=== PATIENT | male | born 1970 | race Caucasian/White ===

== ENCOUNTER 2016-05-13 19:55 | Emergency (ER) | payer OTHER ==
[2016-05-13] MEDS ORDERED: SODIUM CHLORIDE 0.9% 1,000 ML IV STA ×2 (20:57)
[2016-05-13] MEDS ORDERED: METOCLOPRAMIDE 5 MG/ML 2 ML VIAL IVP STA (20:57)
[2016-05-13] MEDS ORDERED: HYDROmorphone 1 MG/ML 1 ML SYRINGE IVP STA (20:57)
[2016-05-13 21:21] LABS: Basophils # (A) 0.1 k/uL (0-0.2); Basophils % (A) 2 %; CH 29.2; Eosinophils # (A) 0.2 k/uL (0-0.7); Eosinophils % (A) 3 %; HCT 45.6 % (39.0-53.0); HDW 2.76; HGB 15.2 gm/dL (13.0-17.5); Luc # (Auto) 0.17; Luc % (Auto) 2; Lymphocytes % (A) 26 %; MCH 28.7 pg (25.0-35.0); MCHC 33.4 g/dL (31.0-37.0); MCV 86.2 fL (80.0-100.0); Mean Platelet Volume 7.6; Monocytes # (A) 0.5 k/uL (0-1.0); Monocytes % (A) 6 %; Neutrophils # (A) 4.7 k/uL (1.3-7.7); Neutrophils % (A) 61 %; RBC 5.29 m/uL (4.30-5.90); WBC 7.7 k/uL (3.8-10.6); WBC (Perox) 7.81
[2016-05-13 21:31] LABS: ALT 27 U/L (21-72); AST 20 U/L (17-59); Alkaline Phosphatase 63 U/L (38-126); Amylase 72 U/L (30-110); Anion Gap 14 mmol/L; Blood Urea Nitrogen 13 mg/dL (9-20); Calcium 9.3 mg/dL (8.4-10.2); Carbon Dioxide 29 mmol/L (22-30); Chloride 101 mmol/L (98-107); Glucose 98 mg/dL (74-99); Non-African American GFR(MDRD) >60 (>60 ml/min/1.73 sqM); Sodium 144 mmol/L (137-145); Total Bilirubin 0.5 mg/dL (0.2-1.3); Total Protein 7.2 g/dL (6.3-8.2)
--- NOTE | 2016-05-13 21:51 | ED ---
General Adult HPI - General Source: patient, family, RN notes reviewed, old records reviewed Mode of arrival: wheelchair Limitations: no limitations <Eugene Oglesby - Last Filed: 05/13/16 21:43> <Jay Mena - Last Filed: 05/13/16 23:07> - General Chief complaint: Urogenital Stated complaint: Male Time Seen by Provider: 05/13/16 20:36 - History of Present Illness Initial comments: Chief complaint history of present illness this is a 45-year-old male here with his significant other. The patient's been having discomfort to the left flank left abdomen down into the left scrotal and testicular area. He recently had ultrasounds. The significant one is already detailed in the medical decision making area but does report bilateral hydroceles left being 8.6 cm with internal debris and a prominent right varicocele On examination the patient exquisitely tender with even mild palpation of the left abdomen left flank. Becomes diaphoretic. Patient states he thinks he may have diverticulitis in the past. (Eugene Oglesby) - Related Data Home Medications Medication Instructions Recorded Confirmed SUMAtriptan SUCCINATE [Imitrex] 25 mg PO BID PRN 04/13/15 05/13/16 Previous Rx's Medication Instructions Recorded Tamsulosin [Flomax] 0.4 mg PO DAILY #3 cap 12/04/15 Allergies Allergy/AdvReac Type Severity Reaction Status Date / Time No Known Allergies Allergy Verified 05/13/16 21:19 Review of Systems ROS Other: All systems not noted in ROS Statement are negative. <Eugene Oglesby - Last Filed: 05/13/16 21:43> ROS Other: All systems not noted in ROS Statement are negative. <Jay Mena - Last Filed: 05/13/16 23:07> ROS Statement: Those systems with pertinent positive or pertinent negative responses have been documented in the HPI. Review of systems. No headache or visual acuity changes. He has on-again off- again sweating because of the pain on the left side of the abdomen. Nausea no vomiting. Decreased appetite. Has appointment see his general surgeon shortly but the pain prevented him from waiting that long. All systems are reviewed. Past medical problems angina, pneumonia, kidney stones, diverticulosis, degenerative disc disease, urethral stricture. The patient surgical back surgery, urethral stricture surgery cholecystectomy, heart catheterization butstents. Hernia repair, left side. And cardiac catheterization as noted above. Family history kidney stones. Patient has no ALLERGIES. Nonsmoker nondrinker. (Eugene Oglesby) (Jay Mena) Past Medical History Past Medical History: Chest Pain / Angina, Musculoskeletal Disorder, Pneumonia, Renal Disease Additional Past Medical History / Comment(s): divericulosis, DDD, back pain and some neck pain on occasion, damage to uretha from catheter insertion during cystoscopy then developed urethral stricture- if pt notices urinary stream getting smaller he has a dilating device he uses but has not had to do this in yrs, kidney stones that he passed, carpal tunnel bilaterally, migraines, L fractured arm 2007. pancreatitis in september 2014 History of Any Multi-Drug Resistant Organisms: None Reported Past Surgical History: Back Surgery, Cholecystectomy, Heart Catheterization, Hernia Repair, Orthopedic Surgery Additional Past Surgical History / Comment(s): Cardiac cath normal, cystoscopy , R and L inguinal hernia repairs. C5-6 discectomy with fusion and titanium plate, L shoulder rotaor cuff repair acromioplasty and distal clavicle removed. Numerous colonoscopies, Past Anesthesia/Blood Transfusion Reactions: No Reported Reaction Additional Past Anesthesia/Blood Transfusion Reaction / Comment(s): Pt has never recieved blood. Past Psychological History: No Psychological Hx Reported Additional Psychological History / Comment(s): Pt lives at home with significant other. He is independent. No assistive devices. No home care. Smoking Status: Never smoker Past Alcohol Use History: None Reported Additional Past Alcohol Use History / Comment(s): smoked as teenager in high school none since. Past Drug Use History: None Reported - Past Family History Father Family Medical History: Diabetes Mellitus, Hypertension Mother Family Medical History: Cancer Additional Family Medical History / Comment(s): Mother had a total hysterectomy due to CA <Eugene Oglesby - Last Filed: 05/13/16 21:43> General Exam Limitations: no limitations <Eugene Oglesby - Last Filed: 05/13/16 21:43> General appearance: alert, in no apparent distress Head exam: Present: atraumatic, normocephalic, normal inspection Eye exam: Present: normal appearance, PERRL, EOMI. Absent: scleral icterus, conjunctival injection, periorbital swelling ENT exam: Present: normal exam, mucous membranes moist Neck exam: Present: normal inspection. Absent: tenderness, meningismus, lymphadenopathy Respiratory exam: Present: normal lung sounds bilaterally. Absent: respiratory distress, wheezes, rales, rhonchi, stridor Cardiovascular Exam: Present: regular rate, normal rhythm, normal heart sounds. Absent: systolic murmur, diastolic murmur, rubs, gallop, clicks GI/Abdominal exam: Present: soft, normal bowel sounds. Absent: distended, tenderness, guarding, rebound, rigid Extremities exam: Present: normal inspection, full ROM, normal capillary refill. Absent: tenderness, pedal edema, joint swelling, calf tenderness Back exam: Present: normal inspection Neurological exam: Present: alert, oriented X3, CN II-XII intact Psychiatric exam: Present: normal affect, normal mood Skin exam: Present: warm, dry, intact, normal color. Absent: rash <Jay Mena - Last Filed: 05/13/16 23:07> - General Exam Comments Initial Comments: General: The patient is awake and alert, because diaphoretic with palpation of the left side of the abdomen. Ongoing for several days. Vital signs temp 97.0 pulse 90 respiratory rate 18 pulse ox 99% room air Eye: Pupils are equal, , extra-ocular movements are intact; there is normal conjunctiva bilaterally. No signs of icterus. Ears, nose, mouth and throat: There are moist mucous membranes Neck: The neck is supple, there is no tenderness .. Cardiovascular: There is a regular rate and rhythm. No murmur, rub or gallop is appreciated. Respiratory: Lungs are clear to auscultation, respirations are non-labored, breath sounds are equal. No wheezes, stridor, rales, or rhonchi. Gastrointestinal: The patient has voluntary guarding and becomes diaphoretic with even mild palpation of the left side the abdomen. Deep palpation on the right side causes no pain minimal to no rebound or referred pain to the left side. Examination of the scrotum finds significant hydroceles bilaterally currently the left is greater than the right. Tenderness with manipulation even significant was a tenderness with even mild palpation over the left inguinal region. Back: There is no tenderness to palpation in the midline. There is no obvious deformity. No rashes noted. Musculoskeletal: Normal ROM, no tenderness, There is no pedal edema. There is no calf tenderness or swelling. Sensation intact. Pulses equal bilaterally 2+. Neurological: No neuro deficits Skin: Skin is warm and dry and no rashes or lesions are noted. (Eugene Oglesby) Course <Eugene Oglesby - Last Filed: 05/13/16 21:43> <Jay Mena - Last Filed: 05/13/16 23:07> Vital Signs 05/13/16 05/13/16 20:15 22:47 Temperature 98.0 F Pulse Rate 97 64 Respiratory 18 16 Rate Blood Pressure 114/64 O2 Sat by Pulse 99 99 Oximetry (Eugene Oglesby) (Jay Mena) - Reevaluation(s) Reevaluation #1: 05/13/16 23:06 Patient's symptoms at this time are improved, no specific abdominal pain ( Jay Mena) Reevaluation #2: 05/13/16 23:[address] findings, hernia, will follow up with surgery as appropriate (Jay Mena) Medical Decision Making - Lab Data Result diagrams: 05/13/16 21:10 05/13/16 21:10 <Eugene Oglesby - Last Filed: 05/13/16 21:43> - Lab Data Result diagrams: 05/13/16 21:10 05/13/16 21:10 - Radiology Data Radiology results: report reviewed (X-ray abdomen, CT and pelvis does show fat- containing hernia, no acute disease), image reviewed <Jay Mena - Last Filed: 05/13/16 23:07> - Medical Decision Making Patient had several ultrasounds and tests prior to coming in today. All related to the discomfort in the left side and left testicle area. The patient' s ultrasound performed 12 days ago showed good bilateral color flow and waveforms are seen is no evidence of testicular torsion. There are presence of hydroceles on the right side a 6 cm with internal debris on the left 8.6 cm with internal debris. There is also presence of varicoceles on the right with prominent vessels. The right testicle increase in vascularity with Valsalva. As read by Dr. Giordano the patient also had an ultrasound of the abdomen complete in the pelvis limited. The radiologist's impression is the pancreas poorly visualized. The liver visualized portions are within normal limits limited by rib shadowing. The gallbladder is surgically absent. Common bile duct visualized portions normal limits, limited distally overlying Gas. The spleen visualized portions are normal limits, limited by rib shadowing overlying gas. The right kidney 1.6 cm hypoechoic area superior pole , 0.5 cm echogenic shadowing focus superior pole. There is 1.6 cm simple appearing cyst in the upper pole right kidney. There is very questionable 4.6 mm calcification right hip. Left kidney within normal limits. Aorta visualized portions normal limits proximal Midline gas. Upper IVC, within normal limits. The bladder wall appears slightly thickened 0.4 cm. Bladder is not distended however final impression is 1 simple appearing right upper pole renal cyst. No acute questionable 5 mm calcification in the right. As read by Dr. Giordano ([facility]) - Lab Data Lab Results 05/13/16 05/13/16 05/13/16 Range/Units 21:10 21:10 21:10 WBC 7.7 (3.8-10.6) k/uL RBC 5.29 (4.30-5.90) m/uL Hgb 15.2 (13.0-17.5) gm/dL Hct 45.6 (39.0-53.0) % MCV 86.2 (80.0-100.0) fL MCH 28.7 (25.0-35.0) pg MCHC 33.4 (31.0-37.0) g/dL RDW 13.0 (11.5-15.5) % Plt Count 252 (150-450) k/uL Neutrophils % 61 % Lymphocytes % 26 % Monocytes % 6 % Eosinophils % 3 % Basophils % 2 % Neutrophils # 4.7 (1.3-7.7) k/uL Lymphocytes # 2.0 (1.0-4.8) k/uL Monocytes # 0.5 (0-1.0) k/uL Eosinophils # 0.2 (0-0.7) k/uL Basophils # 0.1 (0-0.2) k/uL Sodium 144 (137-145) mmol/L Potassium 4.0 (3.5-5.1) mmol/L Chloride 101 (98-107) mmol/L Carbon Dioxide 29 (22-30) mmol/L Anion Gap 14 mmol/L BUN 13 (9-20) mg/dL Creatinine 0.86 (0.66-1.25) mg/dL Est GFR (MDRD) Af Amer >60 (>60 ml/min/1.73 sqM) Est GFR (MDRD) Non-Af >60 (>60 ml/min/1.73 sqM) Glucose 98 (74-99) mg/dL Plasma Lactic Acid Raul 2.0 (0.7-2.0) mmol/L Calcium 9.3 (8.4-10.2) mg/dL Total Bilirubin 0.5 (0.2-1.3) mg/dL AST 20 (17-59) U/L ALT 27 (21-72) U/L Alkaline Phosphatase 63 (38-126) U/L Total Protein 7.2 (6.3-8.2) g/dL Albumin 4.1 (3.5-5.0) g/dL Amylase 72 (30-110) U/L Lipase 192 (23-300) U/L Urine Color Urine Appearance (Clear) Urine pH (5.0-8.0) Ur Specific [place] (1.001-1.035) Urine Protein (Negative) Urine Glucose (UA) (Negative) Urine Ketones (Negative) Urine Blood (Negative) Urine Nitrate (Negative) Urine Bilirubin (Negative) Urine Urobilinogen (<2.0) mg/dL Ur Leukocyte Esterase (Negative) Urine RBC (0-5) /hpf Urine WBC (0-5) /hpf Ur Squamous Epith Cells (0-4) /hpf Calcium Oxalate Crystal (None) /hpf Urine Bacteria (None) /hpf Urine Mucus (None) /hpf 05/13/16 Range/Units 21:20 WBC (3.8-10.6) k/uL RBC (4.30-5.90) m/uL Hgb (13.0-17.5) gm/dL Hct (39.0-53.0) % MCV (80.0-100.0) fL MCH (25.0-35.0) pg MCHC (31.0-37.0) g/dL RDW (11.5-15.5) % Plt Count (150-450) k/uL Neutrophils % % Lymphocytes % % Monocytes % % Eosinophils % % Basophils % % Neutrophils # (1.3-7.7) k/uL Lymphocytes # (1.0-4.8) k/uL Monocytes # (0-1.0) k/uL Eosinophils # (0-0.7) k/uL Basophils # (0-0.2) k/uL Sodium (137-145) mmol/L Potassium (3.5-5.1) mmol/L Chloride (98-107) mmol/L Carbon Dioxide (22-30) mmol/L Anion Gap mmol/L BUN (9-20) mg/dL Creatinine (0.66-1.25) mg/dL Est GFR (MDRD) Af Amer (>60 ml/min/1.73 sqM) Est GFR (MDRD) Non-Af (>60 ml/min/1.73 sqM) Glucose (74-99) mg/dL Plasma Lactic Acid Raul (0.7-2.0) mmol/L Calcium (8.4-10.2) mg/dL Total Bilirubin (0.2-1.3) mg/dL AST (17-59) U/L ALT (21-72) U/L Alkaline Phosphatase (38-126) U/L Total Protein (6.3-8.2) g/dL Albumin (3.5-5.0) g/dL Amylase (30-110) U/L Lipase (23-300) U/L Urine Color Yellow Urine Appearance Clear (Clear) Urine pH 6.0 (5.0-8.0) Ur Specific [place] 1.017 (1.001-1.035) Urine Protein Trace H (Negative) Urine Glucose (UA) Negative (Negative) Urine Ketones Negative (Negative) Urine Blood Negative (Negative) Urine Nitrate Negative (Negative) Urine Bilirubin Negative (Negative) Urine Urobilinogen <2.0 (<2.0) mg/dL Ur Leukocyte Esterase Trace H (Negative) Urine RBC 2 (0-5) /hpf Urine WBC 8 H (0-5) /hpf Ur Squamous Epith Cells 2 (0-4) /hpf Calcium Oxalate Crystal Rare H (None) /hpf Urine Bacteria Rare H (None) /hpf Urine Mucus Rare H (None) /hpf (Eugene Oglesby) (Jay Mena) Disposition <Eugene Oglesby - Last Filed: 05/13/16 21:43> <Jay Mena - Last Filed: 05/13/16 23:07> Clinical Impression: Abdominal pain, Umbilical hernia Disposition: HOME SELF-CARE Condition: Good Instructions: Abdominal Pain (ED), Umbilical Hernia (ED) Referrals: Ludwin Whiteside III, MD [Primary Care Provider] - 1-2 days Gely Arias MD [STAFF PHYSICIAN] - 1-2 days
[2016-05-13 21:52] LABS: Appearance,Urine Clear (Clear); Bacteria,Urine Rare /hpf; Bilirubin,Urine Negative (Negative); Calcium Oxalate Crystals,Urine Rare /hpf; Glucose,Urine (UA) Negative (Negative); Ketones,Urine Negative (Negative); Leukocyte Esterase,Urine Trace (Negative); Mucus,Urine Rare /hpf; Nitrite,Urine Negative (Negative); Particle Count 1413; Protein,Urine Trace (Negative); RBC,Urine 2 /hpf (0-5); Specific Gravity,Urine 1.017 (1.001-1.035); Squamous Epithelial Cell,Urine 2 /hpf (0-4); UA Billing (MACRO vs. MICRO) MICRO; Urobilinogen,Urine <2.0 mg/dL (<2.0); WBC,Urine 8 /hpf (0-5)
[2016-05-13] MEDS ORDERED: RX INFO: IV CONTRAST WAS GIVEN 1 EACH MISC MISCELLANE PRN (21:52)
[2016-05-13] MEDS ORDERED: IOHEXOL 350 MG/ML 25 ML BOTTLE (ORAL USE) PO PRN (21:52)
--- NOTE | 2016-05-13 22:05 | XR ---
EXAMINATION TYPE: XR abdomen 2V DATE OF EXAM: 05/13/2016 9:31 PM CLINICAL HISTORY: Generalized abdominal and left testicular pain, color changed to scrotum per patien t. TECHNIQUE: 3 views of abdomen were obtained in supine and upright positions. COMPARISON: None. FINDINGS: Scattered gas is seen in non-distended small bowel loops. Gas and fecal material is seen in non-distended colon. There is no visceromegaly, pneumoperitoneum, appreciated. The lung bases are clear and the osseous structures are intact. Small densities are noted superimposing the right kidney largest one measuring 3 mm and is suspicious for right kidney stones. Surgical clips are noted in the right upper abdomen with cholecystectomy ch anges. IMPRESSION: 1. Overall nonobstructive bowel gas pattern. 2. Right kidney stones are suggested. 3. Cholecystectomy changes.
[2016-05-13 22:48] VITALS: RESP 16
--- NOTE | 2016-05-13 23:05 | CT ---
EXAMINATION TYPE: CT abdomen pelvis w con DATE OF EXAM: 05/13/2016 10:36 PM COMPARISON: 12/04/2015 HISTORY: Generalized abdominal pain and left testicular pain with discoloration to the scrotum, histo ry of diverticulitis, and cholecystectomy CT DLP: 2496.60 mGycm Automated exposure control for dose reduction was used. TECHNIQUE: Helical acquisition of images was performed from the lung bases through the pelvis. CONTRAST: Performed without Oral Contrast and with IV Contrast, patient injected with 100 mL of Omnipaque 300. FINDINGS: LUNG BASES: Mild atelectasis/scarring is suggested in the right lung base anteriorly. LIVER/GB: No significant abnormality is appreciated in the liver. Cholecystectomy changes are noted. PANCREAS: No significant abnormality is seen. SPLEEN: No significant abnormality is seen. ADRENALS: No significant abnormality is seen. KIDNEYS: Benign-appearing bilateral renal cysts are noted. Mild perinephric fat stranding is noted bilaterally more on the left side probably of chronic nature. There is suggestion of tiny nonobstructing opaque stones of 2 to 3 mm in both kidneys. REPRODUCTIVE ORGANS: Mild enlargement of prostate gland is noted. URINARY BLADDER: No significant abnormality is seen. PELVIC ADENOPATHY: None visualized. OSSEOUS STRUCTURES: Multilevel degenerative changes are present in the thoracolumbar spine with mult iple old wedge compression deformities of thoracic vertebrae. BOWEL: Visualized appendix appears grossly unremarkable without significant surrounding inflammation . Stomach appears grossly unremarkable. Mild fluid distention of small bowel loops are noted without si gnificant obstruction. Mild colonic diverticulosis is noted. There is mucosal thickening in the sigmoid colon and descending colon and possibility of mild colitis changes cannot be excluded. ABDOMINAL WALL: There is evidence of moderate fact and probable omentum containing inguinal hernias b ilaterally larger on the left side. No bowel herniation is noted. Visualized left testicle appears grossly unremarkable in this limited evaluation. Only a small portio n of left testicle is included in the axial images. The right testicle is not included in the axial i mages. IMPRESSION: 1. MODERATE FACT AND PROBABLE OMENTUM CONTAINING INGUINAL HERNIAS BILATERALLY LARGER ON THE LEFT SIDE . 2. VISUALIZED LEFT TESTICLE APPEARS GROSSLY UNREMARKABLE IN THIS LIMITED EVALUATION. 3. BILATERAL RENAL CYSTS AND NONOBSTRUCTING OPAQUE STONES. 4. CHOLECYSTECTOMY. 5. VISUALIZED APPENDIX APPEARS UNREMARKABLE.
[2016-05-14] VITALS: BP 107/78; PULSE 67; TEMP 97.9
== END 2016-05-14 | disposition home or self-care (01) ==
LOC: EC 19:55
DX: R10.9 Unspecified abdominal pain (principal); N43.3 Hydrocele, unspecified; K42.9 Umbilical hernia without obstruction or gangrene; N28.1 Cyst of kidney, acquired; Z98.62 Peripheral vascular angioplasty status; Z79.899 Other long term (current) drug therapy
CPT/HCPCS: 99284; 36415; 80053; 82150; 83605; 83690; 85025; 81001; 87086; 74020; 74177; J2765; J1170; Q9967

== ENCOUNTER 2016-08-12 17:41 | Emergency (ER) | payer OTHER ==
--- NOTE | 2016-08-12 17:59 | ED ---
General Adult HPI - General Chief complaint: Extremity Injury, Upper Stated complaint: FALL Time Seen by Provider: 08/12/16 17:45 Source: patient, EMS, RN notes reviewed, old records reviewed Mode of arrival: EMS Limitations: no limitations - History of Present Illness Initial comments: This is a 45-year-old male to the ER for evaluation. This patient closely for evaluation of shoulder pain. Patient has been falling and right shoulder, severe right shoulder pain. Patient's fall was mechanical in nature has no other injury aside from the right shoulder - Related Data Home Medications Medication Instructions Recorded Confirmed SUMAtriptan SUCCINATE [Imitrex] 25 mg PO BID PRN 04/13/15 05/13/16 Previous Rx's Medication Instructions Recorded Tamsulosin [Flomax] 0.4 mg PO DAILY #3 cap 12/04/15 Allergies Allergy/AdvReac Type Severity Reaction Status Date / Time No Known Allergies Allergy Verified 08/12/16 17:48 Review of Systems ROS Statement: Those systems with pertinent positive or pertinent negative responses have been documented in the HPI. ROS Other: All systems not noted in ROS Statement are negative. Past Medical History Past Medical History: Chest Pain / Angina, Musculoskeletal Disorder, Pneumonia, Renal Disease Additional Past Medical History / Comment(s): divericulosis, DDD, back pain and some neck pain on occasion, damage to uretha from catheter insertion during cystoscopy then developed urethral stricture- if pt notices urinary stream getting smaller he has a dilating device he uses but has not had to do this in yrs, kidney stones that he passed, carpal tunnel bilaterally, migraines, L fractured arm 2007. pancreatitis in september 2014 History of Any Multi-Drug Resistant Organisms: None Reported Past Surgical History: Back Surgery, Cholecystectomy, Heart Catheterization, Hernia Repair, Orthopedic Surgery Additional Past Surgical History / Comment(s): Cardiac cath normal, cystoscopy , R and L inguinal hernia repairs. C5-6 discectomy with fusion and titanium plate, L shoulder rotaor cuff repair acromioplasty and distal clavicle removed. Numerous colonoscopies, Past Anesthesia/Blood Transfusion Reactions: No Reported Reaction Additional Past Anesthesia/Blood Transfusion Reaction / Comment(s): Pt has never recieved blood. Past Psychological History: No Psychological Hx Reported Additional Psychological History / Comment(s): Pt lives at home with significant other. He is independent. No assistive devices. No home care. Smoking Status: Never smoker Past Alcohol Use History: None Reported Additional Past Alcohol Use History / Comment(s): smoked as teenager in high school none since. Past Drug Use History: None Reported - Past Family History Father Family Medical History: Diabetes Mellitus, Hypertension Mother Family Medical History: Cancer Additional Family Medical History / Comment(s): Mother had a total hysterectomy due to CA General Exam Limitations: no limitations General appearance: alert, in no apparent distress Head exam: Present: atraumatic, normocephalic, normal inspection Eye exam: Present: normal appearance, PERRL, EOMI. Absent: scleral icterus, conjunctival injection, periorbital swelling ENT exam: Present: normal exam, mucous membranes moist Neck exam: Present: normal inspection. Absent: tenderness, meningismus, lymphadenopathy Respiratory exam: Present: normal lung sounds bilaterally. Absent: respiratory distress, wheezes, rales, rhonchi, stridor Cardiovascular Exam: Present: regular rate, normal rhythm, normal heart sounds. Absent: systolic murmur, diastolic murmur, rubs, gallop, clicks GI/Abdominal exam: Present: soft, normal bowel sounds. Absent: distended, tenderness, guarding, rebound, rigid Extremities exam: Present: normal inspection, full ROM, normal capillary refill. Absent: tenderness, pedal edema, joint swelling, calf tenderness Back exam: Present: normal inspection Neurological exam: Present: alert, oriented X3, CN II-XII intact Psychiatric exam: Present: normal affect, normal mood Skin exam: Present: warm, dry, intact, normal color. Absent: rash Course Vital Signs 08/12/16 08/12/16 08/12/16 17:48 18:38 18:43 Temperature 97.6 F Pulse Rate 60 74 72 Respiratory 18 16 16 Rate Blood Pressure 105/62 104/59 104/59 O2 Sat by Pulse 100 98 100 Oximetry 08/12/16 18:45 Temperature Pulse Rate 72 Respiratory 15 Rate Blood Pressure 158/72 O2 Sat by Pulse 100 Oximetry - Reevaluation(s) Reevaluation #1: 08/12/16 18:55 After procedural sedation patient has not returned to being completely awake and alert Procedures - Orthopedic Joint Reduction Joint #1 Consent Obtained: verbal consent Time Out Performed: Yes Side: right Joint Reduction Location: shoulder Analgesia: procedural sedation Shoulder Technique Used (if applicable): traction/counter-traction, external rotation Post-Reduction Neuro Exam: intact Post-Reduction Vascular Exam: intact Post Reduction X-Ray Obtained: Yes Post Reduction X-Ray Results: reduced Splint Applied: Yes Patient Tolerated Procedure: well - Procedural Sedation Indications: fracture/dislocation reduction ASA Class: II Mallampati Airway Score: 2 Preparation: cardiac monitor technician applied, pulse oximeter, capnometry used, supplemental O2 applied, reversal agents at bedside, suction/airway equipment at bedside Midazolam: IV Midazolam Dose: 2 Ketamine: IV Ketamine Dose: 100 Complications: none Interventions: oxygen applied Patient Tolerated Procedure: well Medical Decision Making - Medical Decision Making 45 year status post fall, positive right shoulder dislocation, patient was placed in the conscious sedation here in the emergency room, her shoulder was relocated and patient was discharged home - Radiology Data Radiology results: report reviewed (X-ray right shoulder shows anterior dislocation, repeat x-ray shows relocation of reduced right shoulder joint), image reviewed Disposition Clinical Impression: Dislocation of shoulder region, Dislocation of right shoulder joint, Fall Disposition: HOME SELF-CARE Condition: Good Referrals: Ludwin Whiteside III, MD [Primary Care Provider] - 1-2 days
[2016-08-12] MEDS ORDERED: MIDAZOLAM 2 MG/2 ML VIAL IV ONE (18:12)
[2016-08-12] MEDS ORDERED: KETAMINE 10 MG/ML 20 ML VIAL IV ONE (18:12)
--- NOTE | 2016-08-12 18:27 | XR ---
EXAMINATION TYPE: XR shoulder limited RT DATE OF EXAM: 08/12/2016 6:19 PM COMPARISON: NONE HISTORY: Fell today TECHNIQUE: 2 views FINDINGS: There is anterior dislocation of the humeral head. Exam is limited by the obesity. I see no fracture line. IMPRESSION: Anterior shoulder joint dislocation.
--- NOTE | 2016-08-12 19:11 | XR ---
EXAMINATION TYPE: XR shoulder limited RT DATE OF EXAM: 08/12/2016 6:55 PM COMPARISON: Today HISTORY: Post reduction TECHNIQUE: Single view FINDINGS: There appears to be anatomic reduction of the glenohumeral joint. I see no fracture line. IMPRESSION: Anatomic reduction.
[2016-08-12] MEDS ORDERED: KETOROLAC 30 MG/ML 1 ML VIAL IVP STA (19:47)
[2016-08-12 20:52] VITALS: BP 115/66; PULSE 95; RESP 20; TEMP 97.9
== END 2016-08-12 20:53 | disposition home or self-care (01) ==
LOC: EC 17:41
DX: S43.004A Unspecified dislocation of right shoulder joint, initial encounter (principal); W19.XXXA Unspecified fall, initial encounter
CPT/HCPCS: 23650 ×2; 99284 ×2; 96374 ×2; 99152 ×2; 73020; J2250; J1885

== ENCOUNTER → 2016-10-02 | Outpatient (CLI) | payer OTHER ==
--- NOTE | 2016-10-02 12:31 | MR ---
EXAMINATION TYPE: MR shoulder RT wo con DATE OF EXAM: 10/02/2016 12:21 PM COMPARISON: NONE HISTORY: Pain in Right shoulder, Dislocation TECHNIQUE: Multiplanar, multisequence imaging of the right shoulder is performed without contrast. Th e patient was claustrophobic and could not complete the exam. No sagittal images are provided. FINDINGS: Limited scanning demonstrates increased fluid surrounding the bicipital tendon which appear s dislocated from the bicipital groove. There is a small joint effusion. A complete tear of the rotator cuff tendon with retraction to the AC joint is suspected. Hypertrophic change of the AC joint is noted. Due to motion and lack of complete imaging evaluation the labrum is suboptimal. Evaluation the inferi or glenohumeral ligament is nondiagnostic. Could not exclude injury. IMPRESSION: Severely limited exam due motion artifact and lack of sagittal images. The exam is incomplete seconda ry to claustrophobia. Complete tear of the rotator cuff is suspected with elevation of the humeral h ead and joint effusion and tendinous retraction. Bicipital tendon appears to be dislocated from the bicipital groove. Incompletely imaged cannot exclu de biceps bicipital tendon tear based on the limited images provided. AC joint arthropathy.
== END | disposition home or self-care (01) ==
LOC: RADMRIMAIN 11:15
PROVIDERS: ATTEND Orthopaedic Surgery Sports Medicine
DX: M25.411 Effusion, right shoulder (principal)

== ENCOUNTER 2016-10-12 06:51 | Emergency (ER) | payer OTHER ==
[2016-10-12] MEDS ORDERED: ONDANSETRON 4 MG/2 ML VIAL IVP STA (08:06)
[2016-10-12] MEDS ORDERED: MORPHINE SULFATE 4 MG/ML SYRINGE IV STA (08:06)
[2016-10-12] MEDS ORDERED: SODIUM CHLORIDE 0.9% 1,000 ML IV STA (08:06)
[2016-10-12] MEDS ORDERED: SODIUM CHLORIDE 0.9% 500 ML IV STA (08:06)
--- NOTE | 2016-10-12 08:10 | ED ---
General Adult HPI - General Chief complaint: Nausea/Vomiting/Diarrhea Stated complaint: NVD *6days Time Seen by Provider: 10/12/16 07:21 Source: patient, RN notes reviewed, old records reviewed Mode of arrival: ambulatory Limitations: no limitations - History of Present Illness Initial comments: A 38-year-old male the ER for evaluation of multiple complaints, complaints vomiting and cold symptoms, cough congestion diarrhea abdominal pain. Nausea and vomiting. Medical history is significant for multiple surgeries and, no history of heart disease. Nonsmoker. Patient states family members have also been getting sick that he has got at the worse. No change in medications. No travel history. No recent hospitalizations or sick contacts. Patient's is states he is having decreased appetite, decreased activity level, beginning to feel more weak and fatigued. - Related Data Previous Rx's Medication Instructions Recorded Albuterol Inhaler [Ventolin Hfa 1 - 2 puff INHALATION Q6HR #1 10/12/16 Inhaler] inhaler Levofloxacin [Levaquin] 750 mg PO DAILY #7 tab 10/12/16 Naproxen [Naprosyn] 500 mg PO Q12HR #30 tab 10/12/16 Ondansetron [Zofran] 4 mg PO Q8HR PRN #30 tab 10/12/16 Allergies Allergy/AdvReac Type Severity Reaction Status Date / Time No Known Allergies Allergy Verified 10/12/16 06:54 Review of Systems ROS Statement: Those systems with pertinent positive or pertinent negative responses have been documented in the HPI. ROS Other: All systems not noted in ROS Statement are negative. Past Medical History Past Medical History: Chest Pain / Angina, Musculoskeletal Disorder, Pneumonia, Renal Disease Additional Past Medical History / Comment(s): divericulosis, DDD, back pain and some neck pain on occasion, damage to uretha from catheter insertion during cystoscopy then developed urethral stricture- if pt notices urinary stream getting smaller he has a dilating device he uses but has not had to do this in yrs, kidney stones that he passed, carpal tunnel bilaterally, migraines, L fractured arm 2007. pancreatitis in september 2014 History of Any Multi-Drug Resistant Organisms: None Reported Past Surgical History: Back Surgery, Cholecystectomy, Heart Catheterization, Hernia Repair, Orthopedic Surgery Additional Past Surgical History / Comment(s): Cardiac cath normal, cystoscopy , R and L inguinal hernia repairs. C5-6 discectomy with fusion and titanium plate, L shoulder rotaor cuff repair acromioplasty and distal clavicle removed. Numerous colonoscopies, Past Anesthesia/Blood Transfusion Reactions: No Reported Reaction Additional Past Anesthesia/Blood Transfusion Reaction / Comment(s): Pt has never recieved blood. Past Psychological History: No Psychological Hx Reported Additional Psychological History / Comment(s): Pt lives at home with significant other. He is independent. No assistive devices. No home care. Smoking Status: Never smoker Past Alcohol Use History: None Reported Additional Past Alcohol Use History / Comment(s): smoked as teenager in high school none since. Past Drug Use History: None Reported - Past Family History Father Family Medical History: Diabetes Mellitus, Hypertension Mother Family Medical History: Cancer Additional Family Medical History / Comment(s): Mother had a total hysterectomy due to CA General Exam Limitations: no limitations General appearance: alert, in no apparent distress Head exam: Present: atraumatic, normocephalic, normal inspection Eye exam: Present: normal appearance, PERRL, EOMI. Absent: scleral icterus, conjunctival injection, periorbital swelling ENT exam: Present: normal exam, mucous membranes moist Neck exam: Present: normal inspection. Absent: tenderness, meningismus, lymphadenopathy Respiratory exam: Present: normal lung sounds bilaterally. Absent: respiratory distress, wheezes, rales, rhonchi, stridor Cardiovascular Exam: Present: regular rate, normal rhythm, normal heart sounds. Absent: systolic murmur, diastolic murmur, rubs, gallop, clicks GI/Abdominal exam: Present: soft, normal bowel sounds. Absent: distended, tenderness, guarding, rebound, rigid Extremities exam: Present: normal inspection, full ROM, normal capillary refill. Absent: tenderness, pedal edema, joint swelling, calf tenderness Back exam: Present: normal inspection Neurological exam: Present: alert, oriented X3, CN II-XII intact Psychiatric exam: Present: normal affect, normal mood Skin exam: Present: warm, dry, intact, normal color. Absent: rash Course Vital Signs 10/12/16 10/12/16 06:55 10:13 Temperature 98.3 F Pulse Rate 78 70 Respiratory 18 16 Rate Blood Pressure 116/65 105/61 O2 Sat by Pulse 98 94 L Oximetry - Reevaluation(s) Reevaluation #1: 10/12/16 10:15 Patient is in no respiratory distress, symptoms are much improved and states he would like to be discharged discharged home Medical Decision Making - Medical Decision Making 46 male here for evaluation of chest pain, positive pneumonia, patient is in no respiratory distress and can be discharged home - Lab Data Result diagrams: 10/12/16 07:35 10/12/16 07:35 Lab Results 10/12/16 10/12/16 Range/Units 07:35 07:35 WBC 7.0 (3.8-10.6) k/uL RBC 5.11 (4.30-5.90) m/uL Hgb 14.5 (13.0-17.5) gm/dL Hct 41.7 (39.0-53.0) % MCV 81.6 (80.0-100.0) fL MCH 28.5 (25.0-35.0) pg MCHC 34.9 (31.0-37.0) g/dL RDW 13.8 (11.5-15.5) % Plt Count 168 (150-450) k/uL Neutrophils % 81 % Lymphocytes % 11 % Monocytes % 5 % Eosinophils % 0 % Basophils % 1 % Neutrophils # 5.7 (1.3-7.7) k/uL Lymphocytes # 0.8 L (1.0-4.8) k/uL Monocytes # 0.3 (0-1.0) k/uL Eosinophils # 0.0 (0-0.7) k/uL Basophils # 0.1 (0-0.2) k/uL Sodium 132 L (137-145) mmol/L Potassium 3.3 L (3.5-5.1) mmol/L Chloride 95 L (98-107) mmol/L Carbon Dioxide 25 (22-30) mmol/L Anion Gap 12 mmol/L BUN 40 H (9-20) mg/dL Creatinine 1.42 H (0.66-1.25) mg/dL Est GFR (MDRD) Af Amer >60 (>60 ml/min/1.73 sqM) Est GFR (MDRD) Non-Af 53 (>60 ml/min/1.73 sqM) Glucose 96 (74-99) mg/dL Calcium 8.4 (8.4-10.2) mg/dL Phosphorus 4.0 (2.5-4.5) mg/dL Magnesium 2.7 H (1.6-2.3) mg/dL Total Bilirubin 0.9 (0.2-1.3) mg/dL AST 221 H (17-59) U/L ALT 63 (21-72) U/L Alkaline Phosphatase 50 (38-126) U/L Total Protein 6.7 (6.3-8.2) g/dL Albumin 3.6 (3.5-5.0) g/dL Lipase 357 H (23-300) U/L - Radiology Data Radiology results: report reviewed (Chest x-ray positive for pneumonia), image reviewed Disposition Clinical Impression: Community acquired bacterial pneumonia Disposition: HOME SELF-CARE Condition: Good Instructions: Acute Nausea and Vomiting (ED), Community Acquired Pneumonia (ED) Prescriptions: Albuterol Inhaler [Ventolin Hfa Inhaler] 1 - 2 puff INHALATION Q6HR #1 inhaler Levofloxacin [Levaquin] 750 mg PO DAILY #7 tab Naproxen [Naprosyn] 500 mg PO Q12HR #30 tab Ondansetron [Zofran] 4 mg PO Q8HR PRN #30 tab PRN Reason: Nausea Referrals: Ludwin Whiteside III, MD [Primary Care Provider] - 1-2 days
--- NOTE | 2016-10-12 08:57 | XR ---
EXAMINATION TYPE: XR abdomen acute w cxr DATE OF EXAM: 10/12/2016 COMPARISON: NONE HISTORY: Pain TECHNIQUE: Single view of the chest and 2 views of the abdomen are submitted. FINDINGS: Single view of the chest demonstrates right lower lobe airspace consolidation. There is no evidence for pneumoperitoneum. The bowel gas pattern is unremarkable as there is air throughout nondilated small and large bowel. No sizeable air fluid levels.No mass effects are seen. No unusual calcifications. IMPRESSION: 1. Right lower lobe infiltrate. Correlate for pneumonia. 2. Unremarkable abdomen. Cholecystectomy clips.
[2016-10-12 09:29] LABS: Basophils # (A) 0.1 k/uL (0-0.2); Basophils % (A) 1 %; CHCM 35.7; Eosinophils % (A) 0 %; HCT 41.7 % (39.0-53.0); HDW 2.98; HGB 14.5 gm/dL (13.0-17.5); Luc % (Auto) 3; Lymphocytes # (A) 0.8 k/uL (1.0-4.8); Lymphocytes % (A) 11 %; MCH 28.5 pg (25.0-35.0); MCHC 34.9 g/dL (31.0-37.0); MCV 81.6 fL (80.0-100.0); Mean Platelet Volume 7.6; Monocytes # (A) 0.3 k/uL (0-1.0); Monocytes % (A) 5 %; Neutrophils # (A) 5.7 k/uL (1.3-7.7); Neutrophils % (A) 81 %; RBC 5.11 m/uL (4.30-5.90); RDW 13.8 % (11.5-15.5); WBC (Perox) 6.68
[2016-10-12] MEDS ORDERED: IPRATROPIUM-ALBUTEROL 3 ML NEB INHALATION STA (09:31)
[2016-10-12] MEDS ORDERED: LEVOFLOXACIN 750MG-D5W PMX 750 MG in DEXTROSE/WATER 1 150ML.BAG IVPB STA (09:31)
[2016-10-12 09:39] LABS: ALT 63 U/L (21-72); AST 221 U/L (17-59); Alkaline Phosphatase 50 U/L (38-126); Anion Gap 12 mmol/L; Blood Urea Nitrogen 40 mg/dL (9-20); Calcium 8.4 mg/dL (8.4-10.2); Carbon Dioxide 25 mmol/L (22-30); Chloride 95 mmol/L (98-107); Glucose 96 mg/dL (74-99); Magnesium 2.7 mg/dL (1.6-2.3); Non-African American GFR(MDRD) 53 (>60 ml/min/1.73 sqM); Potassium 3.3 mmol/L (3.5-5.1); Sodium 132 mmol/L (137-145); Total Bilirubin 0.9 mg/dL (0.2-1.3); Total Protein 6.7 g/dL (6.3-8.2)
[2016-10-12 10:03] LABS: Troponin I 0.019 ng/mL (0.000-0.034)
[2016-10-12 10:15] VITALS: RESP 16
[2016-10-12 10:24] LABS: Creatine Kinase MB 8.9 ng/mL (0.0-2.4)
[2016-10-12 11:48] VITALS: BP 103/67; PULSE 78; TEMP 99.1
== END 2016-10-12 13:08 ==
LOC: EC 06:51
DX: J18.9 Pneumonia, unspecified organism (principal); R11.2 Nausea with vomiting, unspecified; R19.7 Diarrhea, unspecified; Z87.891 Personal history of nicotine dependence
CPT/HCPCS: 36415; 93005; 80053; 82550; 82553; 83690; 83735; 84100; 84484; 85025; 74022; 99284; 96374; 96375; 96361; J2270; J2405

== ENCOUNTER 2016-11-21 11:27 | Day surgery (SDC) | payer OTHER ==
[2016-11-18 12:59] VITALS: BMI 44.6
[~2016-11-21 11:27] MED LIST: DEXAMETHASONE SOD PHOSPHATE 10 MG/ML 1 ML VIAL IV ONE; HYDROmorphone 1 MG/ML 1 ML SYRINGE IVP PRN; LACTATED RINGERS 1,000 ML IV SCH; LIDOCAINE 1% 20 ML VIAL (10MG/ML) FOR IV START INTRADERMA PRN; ONDANSETRON 4 MG/2 ML VIAL IVP ONE; SCOPOLAMINE 1.5MG/72HR PATCH TRANSDERM ONE; ceFAZolin 2 GM in SODIUM CHLORIDE 0.9% 100 ML IVPB ONE
[2016-11-21] MEDS ORDERED: MIDAZOLAM 2 MG/2 ML VIAL IVP ONE (12:48)
[2016-11-21] MEDS ORDERED: fentaNYL (PF) 50 MCG/ML 2 ML AMP IVP ONE (12:50)
[2016-11-21] MEDS ORDERED: PROPOFOL 10 MG/ML 20 ML VIAL IV ONE (13:41)
[2016-11-21] MEDS ORDERED: BUPIVACAINE (PF) 0.5% 30 ML VIAL INTRAARTIC ONE (13:41)
[2016-11-21] MEDS ORDERED: ROPIVACAINE 5 MG/ML 30 ML VIAL ONE (13:41)
[2016-11-21] MEDS ORDERED: PHENYLEPHRINE-0.9% NACL SYG 1 MG/10 ML SYRINGE ONE (13:41)
[2016-11-21] MEDS ORDERED: SUCCINYLCHOLINE CHLORIDE VIAL 200 MG/10 ML VIAL IV ONE (13:41)
[2016-11-21] MEDS ORDERED: LIDOCAINE 2%-EPI 1:100,000 20 ML VIAL ONE (13:41)
[2016-11-21] MEDS ORDERED: MIDAZOLAM 2 MG/2 ML VIAL ONE (13:41)
[2016-11-21] MEDS ORDERED: ePHEDrine 50 MG/ML 1 ML AMP ONE (13:41)
[2016-11-21] MEDS ORDERED: LIDOCAINE 1% INJ 10MG/ML (20 ML MDV) ONE (13:41)
[2016-11-21] MEDS ORDERED: LACTATED RINGERS 1,000 ML IV ONE (14:52)
[2016-11-21 15:00] VITALS: TEMP 97.5
[2016-11-21 17:47] VITALS: BP 122/72; PULSE 102; RESP 18
--- NOTE | 2016-11-21 19:25 | P.ONQ ---
Anesthesiology Proc Note - PNB - Peripheral Nerve Block Performed Right Interscalene Single Time Out Performed: Yes Procedure Start Time: 12:40 Procedure Stop Time: 12:45 Indication: Acute Post-Operative Pain, Requested by physician Sedation Type: Sedate with meaningful contact maintained Preparation: Sterile Prep Position: Supine Needle Size: 50mm (2") Needle Gauge: 21 Technique: Ultrasound Injectate: 2.0% Lidocaine (see comment for volume) (ropi .5% plus xylo 2% with epi.17cc each.) Blood Aspirated: No Pain Paresthesia on Injection Noted: No Resistance on Injection: Normal Events: Uneventful and Well Tolerated
--- NOTE | 2016-11-22 09:58 | OP ---
DATE OF SERVICE: 11/21/2016 SURGEON: Cliff Boone MD PHOTOGRAPHIC ENGINEER: GABRIELA Santana PREOPERATIVE DIAGNOSES: 1. Right shoulder full thickness rotator cuff tear. 2. Right shoulder labral tear. 3. Right shoulder subacromial impingement. POSTOPERATIVE DIAGNOSES: 1. Right shoulder massive retracted irreparable rotator cuff tear. 2. Right shoulder medial dislocation long head of the biceps tendon with high grade partial tearing of the long head of the biceps tendon. 3. Right shoulder subacromial impingement. PROCEDURE PERFORMED: 1. Right shoulder arthroscopic biceps tenotomy. 2. Right shoulder anterior superior and posterior labral debridement. 3. Right shoulder arthroscopic acromioplasty. ANESTHESIA: General endotracheal. ESTIMATED BLOOD LOSS: Minimal. TOURNIQUET: None. DRAINS: None. COMPLICATIONS: None apparent. DISPOSITION: Postanesthesia care unit. EXAMINATION UNDER ANESTHESIA: Right shoulder elevation 160 degrees, external rotation at the side was to 30 degrees, external rotation at 90 degrees reduction was 90 degrees, internal rotation at 90 degrees reduction was at 60 degrees, sulcus less than 1 cm, anterior translation to the glenoid rim, posterior translation to the glenoid face. ARTHROSCOPIC FINDINGS RIGHT SHOULDER: 1. Superior labrum: Type II superior labral tear tearing both anterior and posterior to the biceps anchor. The biceps anchor was not intact. He has also had high grade partial tearing of the intra-articular portion of the long head of the biceps tendon. The long head of the biceps tendon was also medially dislocated out of the bicipital groove. 2. Anterior inferior labrum: He had a Bankart lesion of the anterior inferior labrum, but this was stable. 3. Posterior labrum: Tearing of the posterior labrum from the 9 o'clock to the 12 o'clock position. 4. Humeral head cartilage was normal. 5. Rotator cuff massive full thickness tear with retraction past the glenoid of the supraspinatus and the infraspinatus. There is just a very small wisp of infraspinatus still attached posteriorly. There is also partial tearing of the superior rolled border of the subscapularis as well. 6. Glenoid face cartilage with just mild grade 1 change. 7. Subacromial space significant fraying of the undersurface of the coracoacromial ligament and he had a type II anterolateral acromial spur. INDICATIONS: Charlie is a pleasant 46-year-old gentleman with right shoulder pain. He sustained an injury to shoulder a few months ago. He has noted significant weakness and pain in the shoulder. He has been through a fairly significant course of nonoperative treatment up to this point. Physical examination and MRI was difficult to discern because of significant motion artifact, however, he did appear to have a very large tear of the rotator cuff. At this point in time, patient feels that he has failed nonoperative management and would like to proceed with operative intervention. A long discussion was held with the patient with regards to treatment options. The risks of procedure were all discussed with him in detail. These risks included but were not limited to risk of infection, nerve damage, bleeding, pain and a small risk of deep vein thrombosis, which could lead to fatal pulmonary embolism. Further risks include lack of healing in the rotator cuff and a possibility for biceps contour change with a biceps tenotomy. The patient understands the operation as well as the fact that there is no guarantee of improvement of his symptoms. An appropriate informed consent was obtained. DESCRIPTION OF THE PROCEDURE: The patient was identified in the preoperative holding area. Surgical site was marked by both the patient and myself. He was given 2 grams of Ancef IV for prophylactic purposes. He was then transported to the operative suite where he was placed supine on the operating room table. The patient was then intubated endotracheally and received general anesthesia throughout the operative procedure. Examination under anesthesia was then performed and the findings were noted as above. The patient was then placed into the beach chair positioned, well padded in preparation for surgery. Great care was taken to ensure that the cervical spine was in neutral alignment, well padded and maintained that way throughout the operative procedure. Great care was also taken to ensure that his legs were appropriately padded as well. The patient's right upper extremity was then prepped and draped in the usual sterile fashion. A standard surgical pause was then undertaken to ensure that appropriate preoperative antibiotics have been given and that we were operating on the correct site. All staff in the room were in agreement and we proceeded. The acromion as well as the AC joint, coracoid were marked with surgical pen. The skin of the anticipated port sites were also injected with surgical pen. The skin of the anticipated portal sites were then injected with 0.25% Marcaine with epinephrine. I then proceed to make posterior portal, a 30-degree arthroscope was introduced in the glenohumeral joint through this portal. The arthroscopic pump pressure was then set at 40 mmHg and maintained at that level throughout the entire case. Next, utilizing the 18 gauge spinal needle ( ) placement, the anterior superior portal was made. This was made just underneath the biceps tendon, high in the rotator interval. A small blue 5.[address] then place and the outflow was then done to ( ) cannula. Diagnostic arthroscopy of the shoulder was then performed and the findings were noted as above. Great care was taken to probe superior labral complex as well as biceps anchor. The biceps anchor was not from the attached. He had a medially dislocated long head of the biceps tendon with a high grade partial tear of the intraarticular portion of the long head of the biceps tendon. This was draped over the superior border of the subscapularis. The tear in the superior labrum extended both anterior and posterior to the biceps anchor. At this point, I proceeded with a biceps tenotomy. This biceps was tenotomized nears its attachment onto the supraglenoid tubercle. This was done utilizing the ArthroCare wand. I then proceeded to debride the torn loose tissue of the superior labrum. This was debrided anteriorly, superiorly and posteriorly back to stable tissue. I then inspected the rotator cuff from intraarticular. He had a massive tear of the rotator cuff. I was unable to see any rotator cuff tissue whatsoever with the intraarticular placement of the arthroscope posteriorly. At this point, no further work was deemed necessary from intraarticular. The arthroscope was removed from the glenohumeral joint and utilizing ( ) a posterior skin incision was placed into the subacromial space. Next, utilizing the 18-gauge spinal needle ( ) the placement of lateral portal was made under direct visualization. A subacromial bursectomy was then performed utilizing synovial shaver as well as the ArthroCare wand. Due to the massive rotator cuff tearing, I left the coracoacromial ligament intact. I then proceed on acromioplasty. He had a type II anterolateral acromial spur. The acromioplasty was done utilizing a synovial shaver in a ( ) type fashion. When the acromioplasty was complete, the arthroscope was placed in the lateral portal and shaver placed posteriorly and ensured that there was adequate and coplanar with posterior aspect of the acromion. I then proceed to inspect the rotator cuff further. I made a fourth portal just off the anterolateral angle of the acromion. I utilized this to try to grab posterior rotator cuff tissue from this portal. The arthroscope was placed into the lateral portal to inspect the rotator cuff further. He had a very massive tear. The superior humeral head was completely devoid of any rotator cuff attachment at all. He had very minimal attachment posteriorly of what is likely the most posterior aspect of the infraspinatus or the superior aspect of the teres minor. The rotator cuff retraction was medial to the glenoid. What tissue that I could grab of the remaining rotator cuff tissue was very poor quality and I could only bring it at best to the mid aspect of the humeral head. This was in my opinion at this point this repair was irreparable. I was unable to bring any aspect of that tear to the normal footprint. I made a decision at this point not to proceed with any more surgical intervention. Many arthroscopic images were taken. The shoulder was thoroughly irrigated and then drained with an outflow cannula. The arthroscopic equipment was removed from the shoulder. The arthroscopic portals were then closed with 3-0 nylon interrupted suture. Sterile compressive dressing was then applied. The patient's right upper extremity was placed in a standard sling. All sponge and needle counts were deemed to correct prior to closure. The patient tolerated the procedure without apparent complication. He was transferred to the recovery room in stable condition. TORO
== END 2016-11-21 17:30 | disposition home or self-care (01) ==
LOC: OR 11:27
PROVIDERS: ATTEND Orthopaedic Surgery Sports Medicine
DX: S46.011A Strain of muscle(s) and tendon(s) of the rotator cuff of right shoulder, initial encounter (principal); S46.191A Other injury of muscle, fascia and tendon of long head of biceps, right arm, initial encounter; M66.811 Spontaneous rupture of other tendons, right shoulder; S43.432A Superior glenoid labrum lesion of left shoulder, initial encounter; M19.011 Primary osteoarthritis, right shoulder; S43.014A Anterior dislocation of right humerus, initial encounter; X58.XXXA Exposure to other specified factors, initial encounter; G47.33 Obstructive sleep apnea (adult) (pediatric); E66.01 Morbid (severe) obesity due to excess calories; Z68.41 Body mass index [BMI] 40.0-44.9, adult
CPT/HCPCS: 29826; 29823; 64415; 84132; J2250; J0330; J1100; J0690; J2405; J2001; J3010; J2795; J2370; J2704

== ENCOUNTER → 2017-12-03 | Outpatient (CLI) | payer OTHER ==
--- NOTE | 2017-12-03 10:06 | CT ---
EXAMINATION TYPE: CT abdomen pelvis wo con DATE OF EXAM: 12/03/2017 COMPARISON: HISTORY: Calculus of kidney CT DLP: 1493.00 mGycm Automated exposure control for dose reduction was used. TECHNIQUE: Helical acquisition of images was performed from the lung bases through the pelvis. FINDINGS: LUNG BASES: Subsegmental changes involving the lung suggestive of scar or atelectasis. LIVER/GB: Postcholecystectomy changes are noted. Clip or calcification right liver stable. PANCREAS: No significant abnormality is seen. SPLEEN: No significant abnormality is seen. ADRENALS: No significant abnormality is seen. KIDNEYS: There are indeterminate hypodense lesions within the kidneys noncontrast technique appears s table relative to the prior Right kidney: No hydronephrosis. There are 3 less than 5 mm right-sided renal calculi. Left kidney: There is no hydronephrosis. There are 3 approximately 2 mm calcifications. No obstructio n. ADENOPATHY: None visualized. OSSEOUS STRUCTURES: Hypertrophic and degenerative changes of the spine are noted. BOWEL: Nonspecific pattern with no obstruction. Occasional diverticula seen. No CT evidence of diver ticulitis.. OTHER: Aorta of normal caliber. There is fat-containing inguinal hernias bilaterally. No free fluid. No free air. IMPRESSION: 1. Bilateral nonobstructing urolithiasis. 2. Fat-containing inguinal hernias bilaterally
== END | disposition home or self-care (01) ==
LOC: RADCTMAIN 09:25
PROVIDERS: ATTEND Nurse Practitioner Adult Health
DX: N20.0 Calculus of kidney (principal); K40.90 Unilateral inguinal hernia, without obstruction or gangrene, not specified as recurrent
CPT/HCPCS: 74176

== ENCOUNTER → 2020-09-04 | Outpatient (CLI) | payer OTHER ==
--- NOTE | 2020-09-04 17:35 | XR ---
Right hand HISTORY: Trauma and pain 3 views the right hand, correlation to prior exam 09/10/2010 There is some underlying arthropathy seen at the metacarpophalangeal joint of the first digit, there is remodeling at the radiocarpal joint. The distal aspect of the second digit there is a small metall ic density present possibly the skin surface, there is also a small focal calcific density just later al to the distal interphalangeal joint which is indeterminate. There is soft tissue swelling present. Alignment is maintained. Bone mineralization is within normal limits. Ossific density dorsal to the wrist is well-corticated and not felt likely to be acute. IMPRESSION: No fracture or dislocation. Possible small foreign bodies. Soft tissue swelling.
== END | disposition home or self-care (01) ==
LOC: RADXRMAIN 14:34
PROVIDERS: ATTEND Emergency Medicine
DX: M25.441 Effusion, right hand (principal)

== ENCOUNTER → 2024-01-20 | Outpatient (CLI) | payer OTHER ==
--- NOTE | 2024-01-20 17:40 | CT ---
EXAMINATION TYPE: CT brain andreea wo con DATE OF EXAM: 01/20/2024 COMPARISON: No prior CT brain HISTORY: fall, head and neck pain CT DLP: 1843 mGycm, Automated exposure control for dose reduction was used. CONTRAST: Patient injected with 0 mL of Isovue 300. CT of the brain is performed utilizing 3 mm thick sections through the posterior fossa and 3 mm thick sections through the remaining calvarium. Study is performed within 24 hours of arrival to the hospital. No abnormal hyperdensity is present to suggest an acute intracranial hemorrhage. No mass lesion is evident. No acute infarcts are evident. Ventricles and sulci are appropriate for the patient age. Paranasal sinuses and mastoid air cells within the [id number] are clear. IMPRESSIONS: 1. No acute intracranial process. Follow-up MRI can be performed as clinically indicated. CT cervical spine. COMPARISON: None CT of the cervical spine is performed in the axial plane at 2 mm thick sections. Reconstructed image s in the coronal, and sagittal plane are reviewed on the computer. No acute fractures are evident. Vertebral body alignment is normal. There is an anterior cervical fusion C5-6. There is degenerative disc changes with loss of disc height throughout the cervical spine. There is f usion through the C5-6 disc level. Vertebral body heights are preserved. No spinal canal stenosis is evident. Uncovertebral joint hypertrophy is contributing to foraminal narrowing on the left at C6-7 IMPRESSION: 1. Postsurgical changes and degenerative disc changes. 2. No acute osseous abnormality evident.
== END ==
LOC: RADCTMAIN 16:52
PROVIDERS: ATTEND Emergency Medicine
DX: S01.80XD Unspecified open wound of other part of head, subsequent encounter (principal); S13.4XXD Sprain of ligaments of cervical spine, subsequent encounter; M50.30 Other cervical disc degeneration, unspecified cervical region; W19.XXXD Unspecified fall, subsequent encounter; Z98.1 Arthrodesis status; Z98.890 Other specified postprocedural states
CPT/HCPCS: 70450; 72125